=== PATIENT | male | born 1995 | race Caucasian/White ===

== ENCOUNTER 2020-05-12 18:24 | Emergency (ER) | payer OTHER ==
[~2020-05-12] VITALS: Ht 175.3 cm; Wt 68.2 kg
[2020-05-12] MEDS ORDERED: KETOROLAC 30 MG/1 ML ONE (18:52)
[2020-05-12] MEDS ORDERED: MORPHINE SULFATE 4 MG/ML, 1ML ONE ×2 (18:52→20:44)
[2020-05-12] MEDS ORDERED: SODIUM CHLORIDE FLUSH 10ML SYR IVF ONE (19:00)
[2020-05-12] MEDS ORDERED: KETOROLAC 30 MG/1 ML IVPush ONE (19:00)
[2020-05-12] MEDS: MORPHINE SULFATE 4 MG/ML, 1ML IVPush PRN ×2 (19:10→20:51)
[2020-05-12 20:15] VITALS: BP 132/53
--- NOTE | 2020-05-12 20:51 | NUR ---
REPORT FROM NAVEEN CAMARENA
--- NOTE | 2020-05-12 21:57 | NUR ---
with reassessment- pain improved to 5/10 ice pack provided updated on estimated poc (awaiting urology consult)
[2020-05-12] MEDS ORDERED: HYDROcodone/APAP 5/325 TABLET ONE (22:15)
[2020-05-12] MEDS ORDERED: HYDROcodone/APAP 5/325 TABLET PO ONE (22:30)
== END 2020-05-12 22:45 | disposition home or self-care (01) ==
LOC: ED 19:17
DX: S30.22XA Contusion of scrotum and testes, initial encounter (principal); I86.1 Scrotal varices; X58.XXXA Exposure to other specified factors, initial encounter; Y93.89 Activity, other specified; Y92.89 Other specified places as the place of occurrence of the external cause; Y99.8 Other external cause status
CPT/HCPCS: 76870; 96374; 96375; 96376; 99284; J1885; J2270